=== PATIENT | male | born 1965 | race Caucasian/White ===

== ENCOUNTER → 2019-06-03 | Outpatient (CLI) | payer OTHER ==
[~2019-06-03] MED LIST: HUMALOG100 UNIT/1 SUBQ; KEFLEX500 M1 PO; LIPITOR40 MG PO; LYRICA 75 MG CA75 MG PO; METFORMIN HCL500 MG PO; NABUMETONE 750750 M1 PO; NORCO 5-325 TA1 EACH PO; TOUJEO SOL300 UNIT/1 SUBQ; TRAMADOL 50 MG50 MG PO
--- NOTE | 2019-06-03 10:35 | EXE ---
[facility] [place] [address] STRESS ECHOCARDIOGRAM Name: ELLIOTTPITO REDDY Room #: REG CL DanielleDanielle#: [id number] ������������� Admission: 06/03/19 ������������� Attend Phys: Mamadou Briggs, Discharge: ��� ������������� ��� Date of : 67 Date of Service: 06/03/19 1035 �� Report #: [id number] �������� ��������������������������������������������[id number] THIS REPORT FOR: //name// APPROVED REPORT Study performed: 06/03/2019 09:23:11 Exam: Stress Echocardiogram Indication: Hyperlipidemia Patient Location: Out-Patient Stress Nurse: Bindu Blackmon RN Room #: Echo lab 2 Status: routine Ht: 5 ft 11 in HR: 91 bpm BP: 108/76 mmHg Rhythm: NSR Medical History Medical History: Diabetes, Hyperlipidemia Cardiac Risk Factors: DM Exercise History: Indeterminate Procedure The patient underwent an Exercise Stress Test using the Poncho Protocol. Blood pressure, heart rate, and EKG were monitored. An Echocardiogram was performed by it field technician in four stages in quad fashion. At peak stress, four selected images were obtained and placed side by side with resting images for comparison. Stress Test Details Stress Test: Exercise stress testing was performed using a Poncho protocol. HR Resting HR: 91 bpm Max Heart Rate (APMHR): 167 bpm Max HR Achieved: 179 bpm Target HR (85% APMHR): 141 bpm % of APMHR: 107 Recovery HR: 111 bpm HR response to stress: Normal HR response to stress BP Resting BP: 108/76 mmHg Max BP: 164/70 mmHg Recovery BP: 120/64 mmHg BP response to stress: Normal blood pressure response to [facility] [address] [place] [address] STRESS ECHOCARDIOGRAM Name: PITO GALLAGHER Room #: REG CL [facility]#: [id number] ������������� Admission: 06/03/19 ������������� Attend Phys: Mamadou Briggs, Discharge: ��� ������������� ��� Date of : 67 Date of Service: 06/03/19 1035 �� Report #: [id number] �������� ��������������������������������������������[id number] stress. ECG Resting ECG: Sinus Rhythm Stress ECG: Sinus Tachycardia Recovery ECG: Sinus Rhythm Clinical Reason for Termination: Maximal effort Exercise duration: 7 min 39 sec Highest Stage Achieved: Stage 3: 3.4 mph at 14% grade. Exercise capacity: 10.4 METs Overall Exercise Capacity for Age: Average Stress ECG Conclusion 1. Subjectively negative for ischemia 2. Elective cartographic a negative for ischemia 3. Average functional capacity Pre-Stress Echo The resting Echocardiogram showed normal left ventricular contractility with an estimated Ejection Fraction of about >55%. Normal wall motion in all segments on baseline images. Post-Stress Echo The stress Echocardiogram showed normal left ventricular contractility with an estimated Ejection Fraction of about 65-70%. Clinical Normal augmentation of myocardial wall segments using a 17 segment model. Conclusion Clinical Response: Non-ischemic Exercise Capacity: Average Stress ECG Response: Non-ischemic Stress Echo Images: Non-ischemic 1. Low risk study No prior study available for comparison. Other Information Study Quality: Adequate [facility] [address] [place] [address] STRESS ECHOCARDIOGRAM Name: ELLIOTTPITO BARRY Room #: REG CL ..#: [id number] ������������� Admission: 06/03/19 ������������� Attend Phys: Mamadou Briggs, Discharge: ��� ������������� ��� Date of : 67 Date of Service: 06/03/19 1035 �� Report #: [id number] �������� ��������������������������������������������[id number] <Conclusion> 1. Low risk study ��������������������������������������������� <ELECTRONICALLY SIGNED> ���������������������������������������� By: Yonas Fuller MD ��������������������������������������������� 06/03/195 34 Yonas Fuller MD /INF
== END ==
LOC: CV 09:16
DX: E78.5 Hyperlipidemia, unspecified (principal); E11.8 Type 2 diabetes mellitus with unspecified complications; Z79.4 Long term (current) use of insulin